=== PATIENT | female | born 1945 | race Caucasian/White ===

== ENCOUNTER 2021-08-04 18:33 | Observation (INO) ==
[2021-08-04 19:58] LABS: POC Blood Urea Nitrogen 15 mg/dL (6-20); POC CO2 31 mmol/L (22-30); POC Calcium, Ionized 1.11 mmEq/L (1.16-1.32); POC Chloride 100 mEq/L (96-108); POC Glucose, Random 93 mg/dL (70-105); POC Hematocrit 39 % (36-48); POC Potassium 2.1 mEql/L (3.3-5.1); POC Sodium 144 mEq/L (133-145)
[2021-08-04] MEDS ORDERED: POTASSIUM CHLORIDE 20 MEQ TABLET PO ONE (20:04)
[2021-08-04] MEDS ORDERED: POTASSIUM CHLORIDE 40 MEQ in DEXTROSE 5% IN WATER 500 ML IV ONE (20:05)
[2021-08-04 20:25] LABS: Basophils # (Auto) 0.05 K/mcL (0.00-0.30); Basophils % (Auto) 0.8 % (0.0-2.0); Eosinophils % (Auto) 1.6 % (0.0-7.0); Hematocrit 38.8 % (34.1-44.9); Hemoglobin 13.2 g/dL (11.2-15.7); Lymphocytes # (Auto) 1.44 K/mcL (1.50-4.80); Lymphocytes % (Auto) 22.7 % (15.5-49.0); Mean Cell Volume 90.7 fL (80.0-100.0); Mean Platelet Volume 10.9 fL (7.4-10.4); Monocytes # (Auto) 0.62 K/mcL (0.10-0.90); Monocytes % (Auto) 9.8 % (1.0-12.0); Neutrophils % (Auto) 65.1 % (38.0-78.0); Platelet Count 207 K/mcL (140-440); RBC 4.28 M/mcL (3.59-5.38); Red Cell Distribution Width 13.1 % (11.5-14.5); WBC 6.3 K/mcL (4.5-11.0)
[2021-08-04] MEDS ORDERED: POTASSIUM CHLORIDE 20 MEQ/10 ML VIAL IV ONE (20:27)
[2021-08-04] MEDS ORDERED: LISINOPRIL 2.5 MG TABLET PO ONE (20:40)
[2021-08-05] MEDS ORDERED: POTASSIUM CHLORIDE 20 MEQ TABLET PO ONE (01:25)
[2021-08-05] MEDS ORDERED: POTASSIUM CHLORIDE 20 MEQ in DEXTROSE 5% IN WATER 250 ML IV ONE (01:26)
[2021-08-05] MEDS ORDERED: MAGNESIUM SULFATE 8.12 MEQ/2 ML VIAL IV ONE (01:44)
[2021-08-05] MEDS ORDERED: ACETAMINOPHEN 325 MG TABLET PO ONE (03:29)
[2021-08-05 04:03] LABS: POC Blood Urea Nitrogen 10 mg/dL (6-20); POC CO2 27 mmol/L (22-30); POC Calcium, Ionized 1.03 mmEq/L (1.16-1.32); POC Chloride 102 mEq/L (96-108); POC Creatinine 0.7 mg/dL (0.6-1.2); POC Glucose, Random 104 mg/dL (70-105); POC Hematocrit 37 % (36-48); POC Potassium 2.8 mEql/L (3.3-5.1); POC Sodium 143 mEq/L (133-145)
[2021-08-05] MEDS ORDERED: ACETAMINOPHEN 325 MG TABLET PO PRN (05:40)
[2021-08-05] MEDS ORDERED: ONDANSETRON 4 MG/2 ML VIAL IV PRN ×2 (05:40→09:14)
[2021-08-05] MEDS ORDERED: CALCIUM GLUCONATE 4.65 MEQ in DEXTROSE 5% IN WATER 50 ML IV ONE (06:04)
--- NOTE | 2021-08-05 06:04 | Emergency Department Note ---
Recheck HPI General Chief Complaint: Recheck/Abnormal Lab/Rx Stated Complaint: Low potassium Time Seen by Provider: 08/04/21 20:04 Source: patient Mode of arrival: ambulatory Limitations: no limitations History of Present Illness HPI Narrative: Narrative: Patient referred to the ED for hypokalemia. She really has no acute complaints. She does have a history of hypertension. No prior history she reports of any significant electrolyte issues. Was recently started on low-dose lisinopril for hypertension. Her primary care physician also did just recently start her on Lasix for some lower extremity edema but she says she only took a single oral dose of this. They did prescribe her some potassium supplements but she as of yet has not filled that prescription. She denies any myalgias, any GI symptom, any cardiorespiratory complaints or palpitations. Related Data Home Medications Medication Instructions Recorded Confirmed cholecalciferol (vitamin D3) 50 2,000 unit PO QDAY 05/05/18 07/17/21 mcg (2,000 unit) capsule glucosamine sulfate [Glucosamine] 2 each PO QDAY 05/05/18 07/17/21 ibandronate 150 mg tablet 150 mg PO QMONTH 05/05/18 07/17/21 multivitamin 1 tab PO QDAY 05/05/18 07/17/21 trazodone 50 mg tablet 50 mg PO HS 08/21/18 07/17/21 Previous Rx's Medication Instructions Recorded albuterol sulfate 90 mcg/actuation 2 puff INHALATION Q4H PRN #8.5 g 12/30/20 aerosol inhaler (Proventil HFA) lisinopril 2.5 mg tablet 2.5 mg PO QDAY #30 tab 07/17/21 Allergies Allergy/AdvReac Type Severity Reaction Status Date / Time codeine Allergy Unknown "does not Verified 08/04/21 18:59 wake up" Review of Systems ROS ROS Narrative: Narrative: At least 10 systems reviewed and otherwise acutely negative except as in the HPI PFSH Narrative Patient History Narrative: Narrative: Medical/Surgical/Family History All Active Problems (Updated 08/05/21 @ 06:08 by Nico Kumar DO) Hypokalemia (Acute) Acute electrocardiogram changes (Acute) Hypocalcemia (Acute) Hypertensive urgency (Acute) Bronchiectasis (Chronic) Lung mass (Chronic) Persistent dry cough (Chronic) Weight loss (Chronic) Bereavement (Chronic) Persistent cough (Chronic) Osteopenia (Chronic) Atrophic vaginitis (Chronic) Constipation (Chronic) Mitral valve prolapse (Chronic) Insomnia (Chronic) Vitamin D deficiency (Chronic) Adenomatous polyp of colon (Chronic) Laceration (Chronic) Wrist injury (Chronic) Medical History (Updated 08/05/21 @ 06:08 by Nico Kumar DO) Adenomatous polyp of colon Atrophic vaginitis Bereavement Bronchiectasis Constipation Insomnia Laceration Lung mass stable granuloma Mitral valve prolapse Osteopenia Persistent cough Persistent dry cough Vitamin D deficiency Weight loss Wrist injury Surgical History History of lumbosacral spine surgery Status post thoracostomy tube placement (~1979) wedge resection, benign nodule Family History Unknown Osteoporosis Cerebrovascular accident (CVA) Social History Smoking Status: Never smoker Alcohol Intake Frequency: does not drink Substance Use: does not use Exam Narrative Narrative: Narrative: Constitutional: normally developed, very pleasant overall well- appearing 76-year-old Head: Normocephalic, atraumatic, Eyes: No Icterus, ENT: A bit dry mucus membranes, Neck: Supple, Cardiac: Normal heart sounds, palpable radial pulses, no peripheral edema Pulmonary: Normal respiratory effort. Breath sounds clear, no wheeze, rhonchi, rales, Gastrointestinal: Abdomen soft, non-distended, non-tender, Musculoskeletal: No gross deformities, well perfused Skin: warm, dry Neuro: Alert and oriented. General Limitations: no limitations Course Vital Signs Vital signs: Vital Signs Temperature 37.2 C 08/04/21 18:54 Pulse Rate 67 08/04/21 18:54 Respiratory Rate 16 08/04/21 18:54 Blood Pressure 210/90 08/04/21 18:54 Pulse Oximetry (%) 95 08/04/21 18:54 Temperature 37.2 C 08/04/21 18:54 Pulse Rate 59 L 08/05/21 05:43 Respiratory Rate 11 L 08/05/21 05:43 Blood Pressure 182/78 08/05/21 05:15 Pulse Oximetry (%) 96 08/05/21 05:43 MDM MDM Narrative Medical decision making narrative: Narrative: Patient sent in for hypokalemia possibly due to her recent diuretic prescription it appears prior to that her potassium was already low normal however she is only taken 1 dose of Lasix. Will evaluate. Twelve-lead EKG does show sinus rhythm heart rate 54 bradycardic, NH, QRS, QTc within normal, does have some nonspecific irregularities suggestive of likely electrolyte abnormalities such as U wave appearance and some ST downsloping laterally. CBC unremarkable, electrolytes show normal renal function but a quite profound hypokalemia 2.1, will replenish and obtain magnesium Patient has received a combination of IV and oral potassium, a total of 140 mEq over the course of her long ED stay, I have also given her a gram of mag sulfate Reevaluation continues to feel well no complaints However repeat electrolytes still have a quite significant albeit mildly improving hypokalemia potassium is still 2.8 Also her ionized calcium 1.03 so I did give her a gram of calcium gluconate. We will send off a phosphorus Given her still significant hypokalemia despite a very significant replenishment here in the ED will require observation admission for further treatment. I have spoken with the hospitalist who accepts admission Did also repeat her EKG that does show some significant improvement from prior Twelve-lead EKG at 2342 shows sinus rhythm heart rate 52 NH, QRS, QTc within normal, previous U waves appear resolved and the downsloping ST segments appear much improved Lab Data Result diagrams: 08/04/21 19:41 08/04/21 23:50 Labs: Lab Results 08/04/21 08/04/21 08/04/21 Range/Units 19:41 19:41 23:50 WBC 6.3 (4.5-11.0) K/mcL RBC 4.28 (3.59-5.38) M/mcL Hgb 13.2 (11.2-15.7) g/dL Hct 38.8 (34.1-44.9) % POC Hct 39 (36-48) % MCV 90.7 (80.0-100.0) fL MCH 30.8 (26.0-34.0) pg MCHC 34.0 (31.0-36.0) g/dL RDW 13.1 (11.5-14.5) % Plt Count 207 (140-440) K/mcL MPV 10.9 H (7.4-10.4) fL Neut % (Auto) 65.1 (38.0-78.0) % Lymph % (Auto) 22.7 (15.5-49.0) % Barber % (Auto) 9.8 (1.0-12.0) % Eos % (Auto) 1.6 (0.0-7.0) % Baso % (Auto) 0.8 (0.0-2.0) % Lymph # (Auto) 1.44 L (1.50-4.80) K/mcL Barber # (Auto) 0.62 (0.10-0.90) K/mcL Eos # (Auto) 0.10 (0.00-0.70) K/mcL Baso # (Auto) 0.05 (0.00-0.30) K/mcL Absolute Neutrophils 4.13 (1.80-8.00) K/mcL POC Sodium 144 (133-145) mEq/L POC Potassium 2.1 L* (3.3-5.1) mEql/L Potassium 2.8 L* (3.3-5.1) mmol/L POC Chloride 100 (96-108) mEq/L POC Total CO2 31 H (22-30) mmol/L POC BUN 15 (6-20) mg/dL POC Creatinine 1.0 (0.6-1.2) mg/dL POC Glucose 93 (70-105) mg/dL POC WB Ioniz Calcium 1.11 L (1.16-1.32) mmEq/L Phosphorus (2.5-4.5) mg/dL Magnesium 1.9 (1.6-2.5) mg/dL 08/05/21 08/05/21 Range/Units 03:50 03:50 WBC (4.5-11.0) K/mcL RBC (3.59-5.38) M/mcL Hgb (11.2-15.7) g/dL Hct (34.1-44.9) % POC Hct 37 (36-48) % MCV (80.0-100.0) fL MCH (26.0-34.0) pg MCHC (31.0-36.0) g/dL RDW (11.5-14.5) % Plt Count (140-440) K/mcL MPV (7.4-10.4) fL Neut % (Auto) (38.0-78.0) % Lymph % (Auto) (15.5-49.0) % Barber % (Auto) (1.0-12.0) % Eos % (Auto) (0.0-7.0) % Baso % (Auto) (0.0-2.0) % Lymph # (Auto) (1.50-4.80) K/mcL Barber # (Auto) (0.10-0.90) K/mcL Eos # (Auto) (0.00-0.70) K/mcL Baso # (Auto) (0.00-0.30) K/mcL Absolute Neutrophils (1.80-8.00) K/mcL POC Sodium 143 (133-145) mEq/L POC Potassium 2.8 L* (3.3-5.1) mEql/L Potassium (3.3-5.1) mmol/L POC Chloride 102 (96-108) mEq/L POC Total CO2 27 (22-30) mmol/L POC BUN 10 (6-20) mg/dL POC Creatinine 0.7 (0.6-1.2) mg/dL POC Glucose 104 (70-105) mg/dL POC WB Ioniz Calcium 1.03 L (1.16-1.32) mmEq/L Phosphorus 2.2 L (2.5-4.5) mg/dL Magnesium (1.6-2.5) mg/dL ED POC Tests ED POC Tests: VALENTINO - SARS Antigen Negative Discharge Plan Patient/Caregiver Discharge Instructions Pt seen by [facility]/PA only: No Clinical Impression: Hypokalemia, Acute electrocardiogram changes, Hypocalcemia Patient Disposition: Xfer As Outpt/Obs ([facility]) Condition: Fair Follow up with: Lucas Little MD [Primary Care Provider] - Prescriptions: No Action glucosamine sulfate 2 each PO QDAY 0RF multivitamin tablet 1 tab PO QDAY 0RF ibandronate 150 mg tablet 150 mg PO QMONTH 0RF cholecalciferol (vitamin D3) 2,000 unit capsule 2,000 unit PO QDAY 0RF albuterol sulfate [Proventil HFA] 90 mcg/actuation HFA aerosol inhaler 2 puff INHALATION Q4H PRN (Reason: shortness of breath or wheezing) Qty: 8.5 2RF trazodone 50 mg tablet 50 mg PO HS 0RF Label Comments: 1-2 tabs lisinopril 2.5 mg tablet 2.5 mg PO QDAY Qty: 30 0RF
[2021-08-05] MEDS ORDERED: hydrALAZINE 20 MG/ML VIAL IV PRN (07:42)
[2021-08-05] MEDS: LISINOPRIL 5 MG TABLET PO SCH ×2 (08:02→21:02)
[2021-08-05] MEDS ORDERED: LISINOPRIL 2.5 MG PO SCH (09:00)
[2021-08-05] MEDS ORDERED: IBANDRONATE 150 MG PO SCH (09:00)
[2021-08-05] MEDS ORDERED: IPRATROPIUM/ALBUTEROL 3 ML AMPUL.NEB NEB PRN (09:14)
--- NOTE | 2021-08-05 09:21 | Internal Med History&Physical ---
HPI History of Present Illness Patient information: Note initiated : 08/05/21 at 9:18 am Service Date, if different from initiated Date: [] Patient: Charisse Arroyo 76 y/o F admitted on 08/05/21 for Low potassium. Chief Complaint: [] History of present illness: Ms. Arroyo is a 76 year old F recently diagnosed hypertensions, presenting with hypokalemia. She had a routine lab check yesterday and yesterday evening she got a call back telling her that her serum potassium level was very low at 2.1 and ask her to go to the pharmacy for new prescriptions of potassium p.o. She was advised by the pharmacist in the pharmacy to come to the ED for further evaluations. She was started on Lasix yesterday. She is complaining of mild left-sided chest pain yesterday but continuously resolved. She denies any muscle weakness or muscle cramps. She denies any shortness of breath. Patient received both potassium and magnesium IV replacement in the ED and her latest serum potassium level was 2.8. Admission request was made for continued potassium replacement until level satisfactory. Constitutional Constitutional: Present headache(s); Absent chills, excessive sweating, fatigue, fever(s) or weakness EENT Eyes: Absent blurry vision, change in vision, loss of vision or other visual disturbances Ears: Absent decreased hearing or tinnitus Nose, mouth and throat: Absent abnormal hearing, dry mouth, headache(s), nasal congestion or sore throat Cardiovascular Cardiovascular: Absent chest pain, chest pain at rest, edema, irregular heart rhythm or palpatations Respiratory Respiratory: Absent cough, dyspnea or wheezing Gastrointestinal Gastrointestinal: Absent abdominal pain, constipation, diarrhea, nausea or vomiting Musculoskeletal Musculoskeletal: Absent back pain, deformity, limited range of motion, muscle cramps, muscle weakness or numbness Integumentary Integumentary: Absent lesions, rash or wounds Neurological Neurological: Absent focal weakness, headache(s) or numbness Psychiatric Psychiatric: Absent anxiety, depression or hallucinations PFSH PFSH All Active Problems (Updated 08/05/21 @ 09:26 by Gautam Winn MD) Essential hypertension (Acute) Hypokalemia (Acute) Acute electrocardiogram changes (Acute) Hypocalcemia (Acute) Hypertensive urgency (Acute) Bronchiectasis (Chronic) Lung mass (Chronic) Persistent dry cough (Chronic) Weight loss (Chronic) Bereavement (Chronic) Persistent cough (Chronic) Osteopenia (Chronic) Atrophic vaginitis (Chronic) Constipation (Chronic) Mitral valve prolapse (Chronic) Insomnia (Chronic) Vitamin D deficiency (Chronic) Adenomatous polyp of colon (Chronic) Laceration (Chronic) Wrist injury (Chronic) Medical History (Updated 08/05/21 @ 09:26 by Gautam Winn MD) Adenomatous polyp of colon Atrophic vaginitis Bereavement Bronchiectasis Constipation Insomnia Laceration Lung mass stable granuloma Mitral valve prolapse Osteopenia Persistent cough Persistent dry cough Vitamin D deficiency Weight loss Wrist injury Surgical History History of lumbosacral spine surgery Status post thoracostomy tube placement (~1979) wedge resection, benign nodule Family History Unknown Osteoporosis Cerebrovascular accident (CVA) Social History education level: college occupational status: retired occupation: Retired Teacher physical activity: walking frequency: 3-4 times per week smoking status: Never smoker alcohol intake frequency: does not drink substance use type: does not use seatbelt use: always working smoke detector in home: Yes MEDS/ALLERGIES Home Medications and Allergies Home Medications Medication Instructions Recorded Confirmed Type cholecalciferol (vitamin D3) 50 2,000 unit PO QDAY 05/05/18 08/05/21 History mcg (2,000 unit) capsule glucosamine sulfate [Glucosamine] 2 each PO QDAY 05/05/18 08/05/21 History ibandronate 150 mg tablet 150 mg PO QMONTH 05/05/18 08/05/21 History multivitamin 1 tab PO QDAY 05/05/18 08/05/21 History trazodone 50 mg tablet 50 mg PO HS 08/21/18 08/05/21 History Lasix 08/05/21 History lisinopril 2.5 mg tablet 5 mg PO BID 08/05/21 08/05/21 History vitamins A,C,C-lnmu-gqllqn 7,160 1 tab PO BID 08/05/21 08/05/21 History unit-113 mg-100 unit tablet (PreserVision AREDS) Allergies Allergy/AdvReac Type Severity Reaction Status Date / Time codeine Allergy Unknown "does not Verified 08/05/21 06:55 wake up" EXAM Constitutional Vitals: Temp Pulse Resp BP Pulse Ox 36.9 C 79 21 155/80 95 08/05/21 06:44 08/05/21 08:36 08/05/21 08:36 08/05/21 08:36 08/05/21 06:44 General appearance: cooperative and no acute distress Head Head exam: Present atraumatic and normocephalic Eye Eye exam: Present EOMI and PERRL ENT ENT exam: Present mucous membranes moist, normal exam and normal external ear exam Neck Neck exam: Present normal inspection; Absent lymphadenopathy, tenderness or thyromegaly Respiratory Respiratory exam: Absent accessory muscle use, respiratory distress or wheezes Cardiovascular Cardiovascular exam: Present normal rate and rhythm; Absent JVD GI/Abdominal GI/Abdominal exam: Present normal bowel sounds and soft; Absent organomegaly or tenderness Extremities Exam Extremities exam: Present full ROM, normal capillary refill and normal inspection; Absent tenderness Neurological Exam Neurological exam: Present alert, CN II-XII intact and oriented X3; Absent motor sensory deficit Psychiatric Psychiatric exam: Present normal affect and normal mood; Absent anxious or depressed Skin Skin exam: Present dry and intact DATA Data Completed and Pending Labs: Labs from last 24 hours 08/05/21 08/05/21 08/04/21 03:50 03:50 23:50 WBC RBC Hgb Hct POC Hct 37 MCV MCH MCHC RDW Plt Count MPV Neut % (Auto) Lymph % (Auto) Merrick % (Auto) Eos % (Auto) Baso % (Auto) Lymph # (Auto) Merrick # (Auto) Eos # (Auto) Baso # (Auto) Absolute Neutrophils POC Sodium 143 POC Potassium 2.8 L* Potassium 2.8 L* POC Chloride 102 POC Total CO2 27 POC BUN 10 POC Creatinine 0.7 POC Glucose 104 POC WB Ioniz Calcium 1.03 L Phosphorus 2.2 L Magnesium 08/04/21 08/04/21 19:41 19:41 WBC 6.3 RBC 4.28 Hgb 13.2 Hct 38.8 POC Hct 39 MCV 90.7 MCH 30.8 MCHC 34.0 RDW 13.1 Plt Count 207 MPV 10.9 H Neut % (Auto) 65.1 Lymph % (Auto) 22.7 Merrick % (Auto) 9.8 Eos % (Auto) 1.6 Baso % (Auto) 0.8 Lymph # (Auto) 1.44 L Merrick # (Auto) 0.62 Eos # (Auto) 0.10 Baso # (Auto) 0.05 Absolute Neutrophils 4.13 POC Sodium 144 POC Potassium 2.1 L* Potassium POC Chloride 100 POC Total CO2 31 H POC BUN 15 POC Creatinine 1.0 POC Glucose 93 POC WB Ioniz Calcium 1.11 L Phosphorus Magnesium 1.9 A/P Assessment and plan (1) Hypokalemia: Status: Acute (2) Essential hypertension: Status: Acute Narrative A/P Narrative: Assessment and Plans: 1. Hypokalemia: Observation med surg telemetry K-rider KCl 40mEq Po BID Repeat serum potassium level at noon, repeat replacement as needed Also check serum Mg level and replace if needed 2. Essential HTN: Avoid diuretics due to hypokalemia Lisinopril Add Amlodipine Hydralazine 10mg IV q4hr PRN SBP>=180 and/or DBP>=110mmHg GI ppx: not currently indicated DVT ppx: Lovenox Code status: Full Prognosis: guarded Disposition: Observation med surg telemetry Time Spent With Patient Time: Total time spent is greater than 50% in coordination of care (as documented) at patient's floor/unit and/or counseling patient: Total time spent with greater than 50% in coordination of care (as documented) at patient's floor/unit and/or counseling patient:: Greater than 35 minutes QUALITY VTE Deep Vein Thrombosis/Pulmonary Embolism Present on Admission: No
[2021-08-05] MEDS: IBUPROFEN 200 MG TABLET PO PRN ×2 (09:27→19:41)
[2021-08-05] MEDS: amLODIPine 10 MG TABLET PO SCH (09:27)
[2021-08-05] MEDS ORDERED: POTASSIUM CHLORIDE 40 MEQ in DEXTROSE 5% IN WATER 500 ML IV ONE (10:00)
[2021-08-05] MEDS ORDERED: PROMETHAZINE 25 MG/ML VIAL IV PRN (13:57)
[2021-08-05] MEDS ORDERED: traZODone HCL 100 MG TABLET PO PRN (18:38)
[2021-08-05] MEDS: POTASSIUM CHLORIDE 20 MEQ TABLET PO SCH (19:41)
[2021-08-05] MEDS: 0.9 % SODIUM CHLORIDE 10 ML SYRINGE IV SCH ×2 (19:42→21:03)
[2021-08-05] MEDS ORDERED: SENNOSIDES 1 TABLET PO SCH (21:00)
[2021-08-05] MEDS ORDERED: traZODone HCL 50 MG TABLET PO SCH (21:00)
[2021-08-05] MEDS: VIT A,C & E/LUTEIN/MINERALS TABLET PO SCH (21:02)
[2021-08-05] MEDS: DOCUSATE SODIUM 100 MG CAPSULE PO SCH (21:03)
[2021-08-06] MEDS: 0.9 % SODIUM CHLORIDE 10 ML SYRINGE IV SCH (07:05)
[2021-08-06 07:54] LABS: Phosphorous 3.2 mg/dL (2.5-4.5)
[2021-08-06 08:03] LABS: Blood Urea Nitrogen 12 mg/dL (8-23); Calcium 8.5 mg/dL (8.6-10.4); Carbon Dioxide 25 mmol/L (22-30); Chloride 110 mmol/L (96-108); Glomerular Filtration Rate 54; Glucose 87 mg/dL (70-105)
[2021-08-06] MEDS: POTASSIUM CHLORIDE 20 MEQ TABLET PO SCH (08:13)
[2021-08-06] MEDS: amLODIPine 10 MG TABLET PO SCH (08:15)
[2021-08-06] MEDS: DOCUSATE SODIUM 100 MG CAPSULE PO SCH (08:15)
[2021-08-06] MEDS: LISINOPRIL 5 MG TABLET PO SCH (08:15)
[2021-08-06] MEDS: VIT A,C & E/LUTEIN/MINERALS TABLET PO SCH (08:15)
[2021-08-06] MEDS ORDERED: GLUCOSAMINE/CHONDROITIN SULF A 1 CAP CAPSULE PO SCH (09:00)
[2021-08-06] MEDS ORDERED: VITAMIN D3 25 MCG TABLET PO SCH (09:00)
[2021-08-06] MEDS ORDERED: ENOXAPARIN 40 MG/0.4 ML SYRINGE SQ SCH (09:00)
[2021-08-06] MEDS ORDERED: MULTIVIT,THER IRON,CA,FA & MIN 1 TABLET PO SCH (09:00)
--- NOTE | 2021-08-06 10:23 | Discharge Summary ---
Discharge Provider Provider Patient information: Note initiated : 08/06/21 at 10:21 am Service Date, if different from initiated Date: [] Patient: Charisse Arroyo 76 y/o F admitted on 08/05/21 for Low potassium. Chief Complaint: [] Date of admission: 08/05/21 06:42 Discharge date: 08/06/21 Primary care physician: Lucas Little Attending physician on admission: Gautam Winn Consults: 08/05/21 Consult to Physician [CONS] Stat Comment: Consulting Provider: Gautam Winn Reason For Exam: Physician to Consult Attending physician on discharge: Gautam Villalta Pubharath Discharge Meds Discharge Medications Home Medications cholecalciferol (vitamin D3) 50 mcg (2,000 unit) capsule 2,000 unit PO QDAY 05/05/18 [History Confirmed 08/05/21 Last Taken 08/04/21 08:00] glucosamine sulfate [Glucosamine] 2 each PO QDAY 05/05/18 [History Confirmed 08/05/21 Last Taken 08/04/21 08:00] ibandronate 150 mg tablet 150 mg PO QMONTH 05/05/18 [History Confirmed 08/05/21 Last Taken 07/14/21 08:00] multivitamin 1 tab PO QDAY 05/05/18 [History Confirmed 08/05/21 Last Taken 08/04/21 08:00] trazodone 50 mg tablet 50 mg PO HS 08/21/18 [History Confirmed 08/05/21 Last Taken 08/03/21 21:00] lisinopril 2.5 mg tablet 5 mg PO BID 08/05/21 [History Confirmed 08/05/21 Last Taken 08/04/21 08:00] vitamins A,C,P-hxnh-qtsfxk 7,160 unit-113 mg-100 unit tablet (PreserVision AREDS) 1 tab PO BID 08/05/21 [History Confirmed 08/05/21 Last Taken 08/04/21 21:00] amlodipine 10 mg tablet 10 mg PO DAILY #30 tab 08/06/21 [Rx Last Taken Unknown] ibuprofen 200 mg tablet 600 mg PO Q6HP PRN #10 tab 08/06/21 [Rx Last Taken Unknown] potassium chloride 20 mEq tablet,extended release(part/cryst) (Klor-Con M) 40 meq PO BIDCC #10 tab 08/06/21 [Rx Last Taken Unknown] COURSE Hospital Course Hospital course: Ms. Arroyo is a 76 year old F recently diagnosed hypertensions, presenting with hypokalemia. She had a routine lab check yesterday and yesterday evening she got a call back telling her that her serum potassium level was very low at 2.1 and ask her to go to the pharmacy for new prescriptions of potassium p.o. She was advised by the pharmacist in the pharmacy to come to the ED for further evaluations. She was started on Lasix yesterday. She is complaining of mild left-sided chest pain yesterday but continuously resolved. She denies any muscle weakness or muscle cramps. She denies any shortness of breath. Patient received both potassium and magnesium IV replacement in the ED and her latest serum potassium level was 2.8. Admission request was made for continued potassium replacement until level satisfactory. 08/06: Serum potassium 3.4. Denies any more headache. Clinically stable. Discharged keegan e. 2 week PCP follow up appointment made for her. All questions were answered prior to patient being physically discharged. Discharge diagnosis: Hypokalemia Time Spent with Patient Time attestation: Total time spent providing and/or coordinating discharge services: Time spent: Less than 30 minutes EXAM Constitutional Vitals: Temp Pulse Resp BP Pulse Ox 36.7 C 61 17 143/69 94 08/06/21 07:53 08/06/21 07:53 08/06/21 07:53 08/06/21 07:53 08/06/21 07:53 General appearance: cooperative and no acute distress Head Head exam: Present atraumatic and normocephalic Eye Eye exam: Present EOMI and PERRL ENT ENT exam: Present mucous membranes moist, normal exam and normal external ear exam Neck Neck exam: Present normal inspection; Absent lymphadenopathy, tenderness or thyromegaly Respiratory Respiratory exam: Absent accessory muscle use, respiratory distress or wheezes Cardiovascular Cardiovascular exam: Present normal rate and rhythm; Absent JVD GI/Abdominal GI/Abdominal exam: Present normal bowel sounds and soft; Absent organomegaly or tenderness Extremities Exam Extremities exam: Present full ROM, normal capillary refill and normal inspection; Absent tenderness Neurological Exam Neurological exam: Present alert, CN II-XII intact and oriented X3; Absent motor sensory deficit Psychiatric Psychiatric exam: Present normal affect and normal mood; Absent anxious or depressed Skin Skin exam: Present dry and intact Discharge Data Data Completed and Pending Labs on day of discharge: Labs from last 24 hours 08/06/21 08/05/21 05:30 12:37 Sodium 145 Potassium 3.4 3.2 L Chloride 110 H Carbon Dioxide 25 Anion Gap 10.0 BUN 12 Creatinine 1.0 GFR Calculation 54 Glucose 87 Calcium 8.5 L Phosphorus 3.2 Magnesium 2.1 Discharge Plan Patient/Caregiver Discharge Instructions Activity: increase activity as tolerated Diet: Regular Diet Instructions: Potassium Chloride (By mouth), Hypokalemia (GEN) Prescriptions: New potassium chloride [Klor-Con M20] 20 mEq Tablet,Er Particles/Crystals 40 meq PO BIDCC Qty: 10 0RF amlodipine 10 mg Tablet 10 mg PO DAILY Qty: 30 0RF ibuprofen 200 mg Tablet 600 mg PO Q6HP PRN (Reason: Per Pain Protocol) Qty: 10 0RF Continued glucosamine sulfate 2 each PO QDAY 0RF multivitamin tablet 1 tab PO QDAY 0RF ibandronate 150 mg tablet 150 mg PO QMONTH 0RF cholecalciferol (vitamin D3) 2,000 unit capsule 2,000 unit PO QDAY 0RF trazodone 50 mg tablet 50 mg PO HS 0RF Label Comments: 1-2 tabs PreserVision AREDS 7,160 unit- 113 mg-100 unit Tablet 1 tab PO BID 0RF Rx Instructions: administer with AM and PM meals lisinopril 2.5 mg tablet 5 mg PO BID 0RF Discontinued Lasix 0RF Label Comments: Patient states only took 1 lasix pill on tuesday morning. Rx Instructions: Need to confirm dose. Follow Up Plan Follow up with: Nevaeh Peralta MD [Physician] - (.Dr. Peralta will contact you at home to schedule a follow up appointment.) Patient Disposition: Home, Self-Care Prognosis: Fair Rehab Potential: Good I certify that the patient requires SNF services: No Overall status at discharge: patient is back to baseline Discharge Orders: Discharge Order (Routine); Ordered 08/06/21 Ordered By: Gautam VILLA VTE Deep Vein Thrombosis/Pulmonary Embolism Present on Admission: No
== END 2021-08-06 12:25 | disposition home or self-care (01) ==
LOC: ICU 18:33 → ED 18:33 → ICU 08-05 06:32
PROVIDERS: ADMIT Internal Medicine; ATTEND Internal Medicine